=== PATIENT | male | born 1990 ===

== ENCOUNTER 2019-08-16 06:36 | Day surgery (SDC) | payer OTHER | END 2019-08-16 16:00 | disposition home or self-care (01) | LOC: CIR.AMB 06:36 → ADM 07:00 → CIR.AMB 14:00 | PROVIDERS: ATTEND Orthopaedic Surgery Hand Surgery | DX: S62.610A Displaced fracture of proximal phalanx of right index finger, initial encounter for closed fracture (principal) ==